=== PATIENT | female | born 1985 | race African-American/Black ===

== ENCOUNTER → 2017-02-28 | Emergency (ER) | payer MEDICAID, OTHER ==
[~2017-02-28] MED LIST: BUTA1CAP PO; FERR325T18 PO; LACTCAP8 PO; OXYC1TAB63 PO; PERI PO; PRENTAB7 PO
--- NOTE | 2017-02-28 17:32 | PD ---
HPI Chief Complaint Contractions Date Seen: Feb 28, 2017 Time Seen: 17:25 Travel History International Travel<30 Days: No Contact w/Intl Traveler<30Days: No Known Affected Area: No History of Present Illness HPI Patient is 31-year-old black female at 36-37 weeks the patient of Isi Roque presents complaining contractions, denies bleeding or ruptured membranes. heart rate tracing is reactive, and she is virginie irregularly at this time. Weeks Gestation: 36 Para: 0 : 1 History Social History Alcohol Use: No Tobacco Use: No Substance Abuse: No Review of Systems General / Constitutional: No: Fever, Weight Gain, Chills, Other Eyes: No: Diploplia, Blurred Vision, Visual changes, Pain, Photophobia HENT: No: Headaches, Vertigo, Lightheadedness Cardiovascular: No: Irregular Rhythm, Chest Pain or Discomfort, Palpitations, Tachycardia, Syncope, Varicosities, Edema, Cyanosis Respiratory: No: Cough, Short of Breath, Other Gastrointestinal: No: Nausea, Vomiting, Diarrhea Genitourinary: No: Decreased Urinary Output, Oliguria Musculoskeletal: No: Limited ROM, Weakness, Cramping, Edema, Pain Skin: No Rash, No Itching, No Dryness, No Lumps, No Change in Pigmentation, No Change in Nails, No Alopecia, No Lesions Neurologic: No: Weakness, Dizziness, Syncope, Focal Abnormalities, Coordination Problem, Headache, Slurred Speech, Seizures Psychiatric: No: Depression, Suicidal Ideations, Homicidal Ideation Endocrine: No: Heat Intolerance, Cold Intolerance, Polydipsia, Polyuria, Other Physical Exam Narrative GENERAL: Well-nourished, well-developed patient. SKIN: Warm and dry. HEAD: Normocephalic and atraumatic. EYES: No scleral icterus. No injection or drainage. ENT: No nasal drainage noted. Mucous membranes pink. Airway patent. NECK: Supple, trachea midline. No JVD. CARDIOVASCULAR: Regular rate and rhythm without murmurs, gallops, or rubs. RESPIRATORY: Breath sounds equal bilaterally. No accessory muscle use. BREASTS: Bilateral exam showed no masses , no retractions, no nipple discharge. ABDOMEN/GI: Abdomen soft, non-tender, bowel sounds present, no rebound, no guarding Gravid to [-36] weeks size Fundal Height: [-36] GENITOURINARY: External Genitalia: intact and normal in appearance BUS glands: [-] Cervix: [post-] Dilatation: [-3] Effacement: [30-] Station: [-3] Presentation: [vtx-] Membranes: [intact ] Uterine Contractions: [irreg-] FHT's: Category: [1-] Baseline: [-133] Reactive: [-yes] Variability: [mod-] Decels: [-0] EXTREMITIES: No cyanosis or edema. BACK: Nontender without obvious deformity. No CVA tenderness. NEUROLOGICAL: Awake and alert. Motor and sensory grossly within normal limits. Five out of 5 muscle strength in all muscle groups. Normal speech. MDM Interpretation(s) Patient a 31-year-old black female at 36 weeks the patient of Isi Doyle who presents complaining of contractions since 4 AM today. heart rate tracing is reactive and she is virginie irregularly. Cervix is 3 thick and very posterior head presenting. Plan Planning of the patient IM pain shot for some relief discharge home at this time to bedrest, Tylenol, increase fluids, heating pad or hot bath. That she is to return for increasing pain, bleeding or leakage of fluid. Diagnosis Diagnosis: Primary Impression: False labor before 37 completed weeks of gestation Disposition: DISCHARGE HOME Condition: Stable Andrea Paredes II, MD Feb 28, 2017 17:32
== END | disposition home or self-care (01) ==
LOC: HOBED 16:37
DX: O47.03 False labor before 37 completed weeks of gestation, third trimester (principal); Z3A.36 36 weeks gestation of pregnancy
CPT/HCPCS: 99284; J3010

== ENCOUNTER 2017-03-01 03:28 | Inpatient (IN) | payer MEDICAID ==
[~2017-03-01] VITALS: Ht 175.3 cm; Wt 103.0 kg
[2017-03-01] VITALS (7 sets, daily range): BP systolic 98–127; BP diastolic 55–74; PULSE 76–111; RESP 16–18; TEMP 97.6–98.8; O2SAT 100
[2017-03-01] MEDS ORDERED: LACTATED RINGER'S 1000 ML INJ 1,000 ML IV ONE ×2 (04:24→16:15)
--- NOTE | 2017-03-01 04:29 | HHI.HP ---
History & Physical H&P OB ED Note (Detail) Patient Name: Nelson Swain Unit Number: [id number] Date of : 1985 Patient Status: Registered Emergency Room Attending Doctor: Andrea Paredes II, MD HPI HPI Chief Complaint Contractions Date Seen: Feb 28, 2017 Time Seen: 17:25 Travel History International Travel<30 Days: No Contact w/Intl Traveler<30Days: No Known Affected Area: No History of Present Illness HPI Patient is 31-year-old black female at 37 weeks the patient of Isi Roque presents complaining contractions, denies bleeding or ruptured membranes. heart rate tracing is reactive, and she is virginie irregularly at this time. Patient was here proximally 10 hours ago was sent home because she was only 3 cm with no effacement and in minimal pain at that time. She presents at this time with an increase in her pain and contractions. Her cervical exam was so very hard to ascertain so an ultrasound was done patient is breech Weeks Gestation: 37 Para: 0 : 1 History (Limited) History Social History Alcohol Use: No Tobacco Use: No Substance Abuse: No Allergies-Medications Allergies-Medications ROS Review of Systems General / Constitutional: No: Fever, Weight Gain, Chills, Other Eyes: No: Diploplia, Blurred Vision, Visual changes, Pain, Photophobia HENT: No: Headaches, Vertigo, Lightheadedness Cardiovascular: No: Irregular Rhythm, Chest Pain or Discomfort, Palpitations, Tachycardia, Syncope, Varicosities, Edema, Cyanosis Respiratory: No: Cough, Short of Breath, Other Gastrointestinal: No: Nausea, Vomiting, Diarrhea Genitourinary: No: Decreased Urinary Output, Oliguria Musculoskeletal: No: Limited ROM, Weakness, Cramping, Edema, Pain Skin: No Rash, No Itching, No Dryness, No Lumps, No Change in Pigmentation, No Change in Nails, No Alopecia, No Lesions Neurologic: No: Weakness, Dizziness, Syncope, Focal Abnormalities, Coordination Problem, Headache, Slurred Speech, Seizures Psychiatric: No: Depression, Suicidal Ideations, Homicidal Ideation Endocrine: No: Heat Intolerance, Cold Intolerance, Polydipsia, Polyuria, Other Physical Exam Physical Exam Narrative GENERAL: Well-nourished, well-developed patient. SKIN: Warm and dry. HEAD: Normocephalic and atraumatic. EYES: No scleral icterus. No injection or drainage. ENT: No nasal drainage noted. Mucous membranes pink. Airway patent. NECK: Supple, trachea midline. No JVD. CARDIOVASCULAR: Regular rate and rhythm without murmurs, gallops, or rubs. RESPIRATORY: Breath sounds equal bilaterally. No accessory muscle use. BREASTS: Bilateral exam showed no masses , no retractions, no nipple discharge. ABDOMEN/GI: Abdomen soft, non-tender, bowel sounds present, no rebound, no guarding Gravid to [-36] weeks size Fundal Height: [-36] GENITOURINARY: External Genitalia: intact and normal in appearance BUS glands: [-] Cervix: [post-] Dilatation: [-3] Effacement: [30-] Station: [-3] Presentation: [vtx-] Membranes: [intact ] Uterine Contractions: [irreg-] FHT's: Category: [1-] Baseline: [-133] Reactive: [-yes] Variability: [mod-] Decels: [-0] EXTREMITIES: No cyanosis or edema. BACK: Nontender without obvious deformity. No CVA tenderness. NEUROLOGICAL: Awake and alert. Motor and sensory grossly within normal limits. Five out of 5 muscle strength in all muscle groups. Normal speech. Data Data [facility] Interpretation(s) Patient a 31-year-old black female at 37 weeks the patient of Isi Doyle who presents complaining of contractions since 4 AM today. heart rate tracing is reactive and she is virginie irregularly. Cervix is 3 thick and very posterior and the baby is breech by ultrasound Plan we will proceed with section for delivery due to malpresentation Diagnosis: Primary Impression: 37 week intrauterine breech presentation in early labor Disposition: DISCHARGE HOME Condition: Stable Andrea Paredes II, MD Feb [id number] [id number] Andrea Paredes II, MD Mar 01, 2017 04:29
[2017-03-01 04:50] LABS: AUTOMATED NEUTROPHIL # 8.8 TH/MM3 (1.8-7.7); BASOPHIL % 0.4 % (0.0-2.0); EOSINOPHIL # 0.1 TH/MM3 (0-0.4); EOSINOPHIL % 0.9 % (0.0-4.0); HEMATOCRIT 38.1 % (35.0-46.0); HEMO FLAGS DIFF FINAL; LYMPH % 17.8 % (9.0-44.0); LYMPHOCYTE # 2.1 TH/MM3 (1.0-4.8); MEAN CELL VOLUME 93.3 FL (80.0-100.0); MEAN CORPUSCULAR HGB CONC 34.3 % (32.0-36.0); MONO % 7.7 % (0.0-8.0); NEUT % 73.2 % (16.0-70.0); PLATELET COUNT 284 TH/MM3 (150-450); RED BLOOD COUNT 4.09 MIL/MM3 (4.00-5.30); RED CELL DISTRIBUTION WIDTH 13.9 % (11.6-17.2)
[2017-03-01 04:54] LABS: BACTERIA, URINE FEW /hpf; BLOOD, URINE NEG (NEG); COMMENT (UR) CULT NOT INDICATED; CULTURE IF INDICATED CULT NOT INDICATED; GLUCOSE,URINE NEG (NEG); KETONE, URINE NEG (NEG); NITRITE,URINE NEG (NEG); SQUAMOUS EPITHELIAL CELL URINE 1 /hpf (0-5); URINE COLOR LIGHT-YELLOW (YELLW/STRAW)
[2017-03-01] MEDS ORDERED: PRENTAB7 PO (05:11)
[2017-03-01] MEDS ORDERED: LACTCAP8 PO (05:11)
[2017-03-01] MEDS: LACTATED RINGER'S 1000 ML INJ 1,000 ML IV SCH (05:15)
[2017-03-01] MEDS ORDERED: ceFAZolin 2 GM PREMIX 50 ML IV SCH (05:30)
[2017-03-01] MEDS ORDERED: ACETAMINOPHEN 1000 MG/100 ML 100 ML IV ONE (05:55)
[2017-03-01] MEDS ORDERED: CITRIC ACID-SODIUM CITRATE LIQ 30 ML UDC PO SCH (06:00)
[2017-03-01] MEDS ORDERED: EPIDURAL-DIPHENHYDRAMINE HCL 50 MG CAP PO PRN (06:05)
[2017-03-01] MEDS ORDERED: EPIDURAL-DIPHENHYDRAMINE HCL 50 MG/ML VIAL IV PUSH PRN (06:05)
[2017-03-01] MEDS ORDERED: EPIDURAL-NO SYSTEMIC NARCOTICS PRN (06:05)
[2017-03-01] MEDS ORDERED: EPIDURAL-NALOXONE HCL 0.4 MG/ML AMP IV PUSH PRN (06:05)
[2017-03-01] MEDS ORDERED: EPIDURAL-DO NOT ADMINISTER ANTICOAGULANTS PRN (06:05)
[2017-03-01] MEDS ORDERED: oxyCODONE/ACETAMINOPHEN 5 MG/325 MG TAB PO PRN (07:15)
[2017-03-01] MEDS ORDERED: OXYTOCIN 30 UNITS-500ML PREMIX 500 ML IV ONE (07:15)
[2017-03-01] MEDS ORDERED: ONDANSETRON HCL 4 MG/2 ML VIAL IV PUSH PRN (07:15)
[2017-03-01] MEDS ORDERED: SIMETHICONE 80 MG CHEWABLE TAB PO PRN (07:15)
[2017-03-01] MEDS ORDERED: SODIUM CHLORIDE 0.9% FLUSH 10 ML FLUSH IV FLUSH PRN (07:15)
[2017-03-01] MEDS ORDERED: ZOLPIDEM TARTRATE 5 MG TAB PO PRN (07:15)
[2017-03-01] MEDS ORDERED: KETOROLAC TROMETHAMINE 60 MG/2 ML (IM) VIAL IM PRN (07:15)
[2017-03-01] MEDS ORDERED: ACETAMINOPHEN 325 MG TAB PO PRN (07:15)
[2017-03-01] MEDS ORDERED: KETOROLAC TROMETHAMINE 60 MG/2 ML (IM) VIAL IM ONE (07:54)
[2017-03-01] MEDS ORDERED: OXYTOCIN 30 UNITS-500ML PREMIX 500 ML ONE (07:55)
[2017-03-01] MEDS ORDERED: SODIUM CHLORIDE 0.9% FLUSH 10 ML FLUSH IV FLUSH SCH (09:00)
--- NOTE | 2017-03-01 09:02 | MP ---
cc: KIMBERLY PAREDES MD DATE OF SURGERY 03/01/2017 PREOPERATIVE DIAGNOSIS 37-week intrauterine breech presentation early labor. POSTOPERATIVE DIAGNOSIS 37-week intrauterine breech presentation early labor. PROCEDURE Primary low transverse section SURGEON Kimberly Paredes MD ANESTHESIA Spinal PREOPERATIVE NOTE The patient is a 31-year-old black G1, P0 at 37 weeks. She goes to [facility] for care. She presented in early labor and noted to be breech presentation with ultrasound. The patient needed section delivery. PROCEDURE The patient was taken to the operating room, placed in the supine position on the operating table. Adequate spinal anesthesia was administered. She was prepped and draped for abdominal surgery and a Pfannenstiel incision was made in the lower abdomen. The fascia was dissected laterally off the rectus muscle and the peritoneal cavity entered sharply. The incision was extended superiorly and inferiorly and a bladder blade placed in the lower incision. The visceral peritoneum was reflected off the lower uterine segment and placed on the bladder blade. A transverse hysterotomy was made and extended bilaterally and a male infant was delivered from zaid breech presentation at 06:29 a.m., weight 3480 grams, 8 and 9. There were no complications with the delivery. Cord blood obtained, placenta manually extracted. The uterus exteriorized and cleaned of all remnants of membranes. Hysterotomy closed in a running layer of chromic followed by imbricating suture of same. Hemostasis was achieved. The bladder reapproximated with a running 2-0 Vicryl. The uterus elevated and blood suctioned from the cul-de-sac and gutters. The uterus was replaced in the peritoneal cavity. The ovaries and tubes were within normal limits. The parietal peritoneum closed in a running layer of 2-0 Vicryl. The muscle reapproximated with stick ties of chromic. The fascia closed in a running layer of 0-Vicryl. The subcutaneous tissues reapproximated with 3-0 plain running catgut suture and skin closed with 3-0 Monocryl subcuticular stitch. Pressure dressing applied. Estimated blood loss 500 cc with no complications. Sponge and needle counts correct times two. The patient was sent to the Recovery Room in stable condition. MD ALBER Hill/EVARISTO /7:21 AM /8:41 AM
[2017-03-01] MEDS ORDERED: LACTATED RINGER'S 1000 ML INJ 1,000 ML IV SCH (12:00)
[2017-03-01] MEDS ORDERED: OXYTOCIN 30 UNITS-500ML PREMIX 500 ML IV PRN (17:15)
[2017-03-01] MEDS: DOCUSATE SODIUM 50 MG/SENNA 8.6 MG TAB PO PRN (21:14)
[2017-03-01] MEDS: IBUPROFEN 600 MG TAB PO PRN (21:15)
[2017-03-02] VITALS (8 sets, daily range): BP systolic 121–123; BP diastolic 71–74; PULSE 18–122; RESP 18; TEMP 98.6–99.3; O2SAT 100
[2017-03-02 05:59] LABS: AUTOMATED NEUTROPHIL # 19.4 TH/MM3 (1.8-7.7); BASOPHIL % 0.2 % (0.0-2.0); EOSINOPHIL # 0.2 TH/MM3 (0-0.4); EOSINOPHIL % 0.7 % (0.0-4.0); HEMATOCRIT 27.1 % (35.0-46.0); HEMO FLAGS DIFF FINAL; LYMPHOCYTE # 2.3 TH/MM3 (1.0-4.8); MEAN CELL VOLUME 94.6 FL (80.0-100.0); MEAN CORPUSCULAR HEMOGLOBIN 31.3 PG (27.0-34.0); MEAN CORPUSCULAR HGB CONC 33.1 % (32.0-36.0); MONO % 5.9 % (0.0-8.0); NEUT % 83.2 % (16.0-70.0); PLATELET COUNT 248 TH/MM3 (150-450); RED BLOOD COUNT 2.87 MIL/MM3 (4.00-5.30); WHITE BLOOD COUNT 23.3 TH/MM3 (4.0-11.0)
[2017-03-02] MEDS: IBUPROFEN 600 MG TAB PO PRN ×2 (07:41→17:25)
[2017-03-02] MEDS ORDERED: medroxyPROGESTERone ACETATE SUSP 150 MG/ML SYRINGE IM ONE (09:15)
--- NOTE | 2017-03-02 09:38 | HHI.OB ---
Subjective Post Operative Day: 1 Remarks Patient is a 31-year-old delivered at 37 weeks and 0 days. Patient is day 1 after for breech presentation. Patient's pain is well -controlled. Patient reports eating and drinking without any nausea or vomiting. Patient reports minimal bleeding. Patient has passed gas but no bowel movements. Patient is walking without lower extremity pain or shortness of breath. Patient reports desire for contraception and breast- and formula- feeding. Objective Vitals/I&O Vital Signs Date Time Temp Pulse Resp B/P (MAP) Pulse Ox O2 Delivery O2 Flow Rate FiO2 03/01/17 12:00 98.8 85 16 118/64 (82) Result Diagram: 03/02/17 0533 Objective Remarks GENERAL: Well-nourished, well-developed patient. CARDIOVASCULAR: Regular rate and rhythm without murmurs, gallops, or rubs. RESPIRATORY: Breath sounds equal bilaterally. No accessory muscle use. ABDOMEN/GI: Abdomen soft, non-tender, bowel sounds present. Incision: Clean, dry and intact. Fundus: Firm, non-tender at umbilicus. GENITOURINARY: Light to moderate bleeding. EXTREMITIES: No cyanosis or edema, non-tender, without signs of DVT. Medications and IVs Current Medications Medications (Trade) Dose Ordered Sig/Richard Route Start Time Stop Time Status Last Admin Lactated Ringer's 1,000 ml @ 150 mls/hr Q6H40M IV 03/01/17 04:54 03/01/17 05:15 Cefazolin Sodium/ Dextrose 50 ml @ 100 mls/hr APARTMENT MAINTENANCE WORKER IV 03/01/17 05:30 03/05/17 05:29 03/01/17 05:48 (Bicitra Liq) 30 ml APARTMENT MAINTENANCE WORKER PO 03/01/17 06:00 03/05/17 05:59 03/01/17 05:48 Oxytocin 500 ml @ 100 mls/hr UNSCH X1 PRN IV 03/01/17 17:15 03/02/17 17:14 (NS Flush) 2 ml BID IV FLUSH 03/01/17 09:00 03/01/17 21:15 (NS Flush) 2 ml UNSCH PRN IV FLUSH 03/01/17 07:15 (Mylicon Chew) 80 mg QID PRN PO 03/01/17 07:15 (Tylenol) 650 mg Q6H PRN PO 03/01/17 07:15 (Motrin) 600 mg Q6H PRN PO 03/01/17 07:15 03/02/17 07:41 (Percocet 5-325 Mg) 1 tab Q4H PRN PO 03/01/17 07:15 (Percocet 5-325 Mg) 2 tab Q4H PRN PO 03/01/17 07:15 (Vivian-Colace) 2 tab Q12H PRN PO 03/01/17 07:15 03/01/17 21:14 (Ambien) 5 mg HS PRN PO 03/01/17 07:15 (M-M-R Ii Inj) 0.5 ml ONCE ONCE SQ 03/02/17 16:00 03/02/17 16:01 (Boostrix Inj) 0.5 ml ONCE ONCE IM 03/02/17 16:00 03/02/17 16:01 03/02/17 07:42 (Zofran Inj) 4 mg Q6H PRN IV PUSH 03/01/17 07:15 (Flu (Quadrivalent) Vaccine Inj) 0.5 ml ONCE ONCE IM 03/02/17 10:00 03/02/17 10:01 Assessment/Plan Problem List: (1) 37 weeks gestation of ICD Codes: Z3A.37 - 37 weeks gestation of (2) S/P ICD Codes: Z98.891 - History of uterine scar from previous surgery Assessment and Plan Patient is a 31-year-old delivered at 37 weeks and 0 days. Patient is day 1 after for breech presentation. Patient was counseled to do 6 weeks of pelvic rest. Patient was counseled to follow up in 1 and 6 weeks. Patient requested follow-up and contraception. --AF VSS --Continue routine care --Motrin and Percocet when necessary for pain --Encourage OOB --Pelvic rest for 6 weeks will need follow-up appointment at that time. Incision check in one week. --Contraception: Depo-Provera --Anticipate discharge tomorrow or the next day s/d/w Dr. Oleary and Dr. Hadley Discharge Planning --Anticipate discharge tomorrow or the next day Aidan Garcia MD R2 Mar 02, 2017 09:38
[2017-03-02] MEDS ORDERED: INFLUENZA VIRUS VACCINE (QUADRIVALENT) 0.5 ML SYR IM ONE (10:00)
[2017-03-02] MEDS: LACTATED RINGER'S 1000 ML INJ 1,000 ML IV SCH (14:14)
[2017-03-02] MEDS ORDERED: MEASLES, MUMPS, RUBELLA VACCINE 0.5 ML VIAL SQ ONE (16:00)
[2017-03-02] MEDS ORDERED: DIPHTH/TETANUS/ACEL PERTUSSIS (BOOSTER) 0.5 ML VIAL/PFS IM ONE (16:00)
[2017-03-02] MEDS ORDERED: LACTATED RINGER'S 1000 ML INJ 500 ML IV SCH (23:30)
[2017-03-03] MEDS: IBUPROFEN 600 MG TAB PO PRN ×3 (02:58→16:31)
[2017-03-03] MEDS: oxyCODONE/ACETAMINOPHEN 5 MG/325 MG TAB PO PRN ×3 (03:01→16:31)
[2017-03-03 03:03] VITALS: BP 129/84; PULSE 109; RESP 18
[2017-03-03 08:00] VITALS: BP 122/74; PULSE 95; RESP 18; TEMP 98.2
--- NOTE | 2017-03-03 08:17 | HHI.OB ---
Subjective Post Operative Day: 2 Remarks Patient seen and examined this morning. Afebrile overnight. Patient tachycardic ranging 100s-120s past 24 hours. BP within normal limits. Patient is postoperative day #2. Pain is well-controlled. Incision not draining. Decreased lochia. Denies dysuria or hematuria. No breast tenderness. She is feeding the baby via breast and formula. Appetite good. No nausea or vomiting. Endorses flatus. Ambulating well without any issues of balance. She specifically denies any dizziness, lightheadedness, or chest pain. Denies calf pain, shortness of breath, cough. Objective Vitals/I&O Vital Signs Date Time Temp Pulse Resp B/P (MAP) Pulse Ox O2 Delivery O2 Flow Rate FiO2 03/03/17 03:03 18 03/03/17 03:03 109 129/84 (99) 03/02/17 22:55 105 03/02/17 20:30 120 03/02/17 20:30 18 123/71 (88) 03/02/17 20:30 98.6 18 03/02/17 18:35 18 03/02/17 18:35 99.3 122 121/74 (90) 100 03/02/17 17:27 114 03/02/17 15:32 120 03/02/17 13:23 102 03/02/17 12:57 106 03/02/17 11:46 122 Result Diagram: 03/02/17 0533 Objective Remarks GENERAL: Well-nourished, well-developed patient. CARDIOVASCULAR: Regular rate and rhythm without murmurs, gallops, or rubs. RESPIRATORY: Breath sounds equal bilaterally. No accessory muscle use. ABDOMEN/GI: Abdomen soft, non-tender, bowel sounds present. Incision: Clean, dry and intact. Fundus: Firm, non-tender at umbilicus. GENITOURINARY: Light to moderate bleeding. EXTREMITIES: No cyanosis or edema, non-tender, without signs of DVT. Medications and IVs Current Medications Medications (Trade) Dose Ordered Sig/Richard Route Start Time Stop Time Status Last Admin Lactated Ringer's 1,000 ml @ 150 mls/hr Q6H40M IV 03/01/17 04:54 03/01/17 05:15 Cefazolin Sodium/ Dextrose 50 ml @ 100 mls/hr LICENSED PRACTICAL NURSE CLINIC NURSE IV 03/01/17 05:30 03/05/17 05:29 03/01/17 05:48 (Bicitra Liq) 30 ml LICENSED PRACTICAL NURSE CLINIC NURSE PO 03/01/17 06:00 03/05/17 05:59 03/01/17 05:48 (NS Flush) 2 ml BID IV FLUSH 03/01/17 09:00 03/01/17 21:15 (NS Flush) 2 ml UNSCH PRN IV FLUSH 03/01/17 07:15 (Mylicon Chew) 80 mg QID PRN PO 03/01/17 07:15 (Tylenol) 650 mg Q6H PRN PO 03/01/17 07:15 (Motrin) 600 mg Q6H PRN PO 03/01/17 07:15 03/03/17 02:58 (Percocet 5-325 Mg) 1 tab Q4H PRN PO 03/01/17 07:15 03/02/17 18:47 (Percocet 5-325 Mg) 2 tab Q4H PRN PO 03/01/17 07:15 03/03/17 03:01 (Vivian-Colace) 2 tab Q12H PRN PO 03/01/17 07:15 03/01/17 21:14 (Ambien) 5 mg HS PRN PO 03/01/17 07:15 (Zofran Inj) 4 mg Q6H PRN IV PUSH 03/01/17 07:15 Assessment/Plan Problem List: (1) S/P ICD Codes: Z98.891 - History of uterine scar from previous surgery Assessment and Plan Patient is a 31-year-old now delivered at 37 weeks and 0 days. Patient is day 2 after for breech presentation. Patient was counseled to do 6 weeks of pelvic rest. Patient was counseled to follow up in 1 week for incision check and 6 weeks . Patient requested follow-up and contraception. --AF --Continue routine postoperative care --Motrin and Percocet when necessary for pain --Encourage OOB --Pelvic rest for 6 weeks will need follow-up appointment at that time. Incision check in one week. Patient following with Isi Roque --Contraception: desiring Depo-Provera, will give prior to hospital discharge --Anticipate discharge tomorrow s/d/w Dr. Oleary Discharge Planning --Anticipate discharge tomorrow or the next day Brady Reddy MD R2 Mar 03, 2017 08:17
[2017-03-03] MEDS ORDERED: INFLUENZA VIRUS VACCINE (QUADRIVALENT) 0.5 ML SYR IM ONE (13:45)
[2017-03-03] MEDS ORDERED: medroxyPROGESTERone ACETATE SUSP 150 MG/ML SYRINGE IM ONE (13:45)
[2017-03-03 20:00] VITALS: BP 120/69; PULSE 102; RESP 18; TEMP 98.2
[2017-03-04] MEDS: IBUPROFEN 600 MG TAB PO PRN ×2 (02:27→10:09)
[2017-03-04] MEDS: oxyCODONE/ACETAMINOPHEN 5 MG/325 MG TAB PO PRN ×2 (02:27→10:10)
[2017-03-04] MEDS ORDERED: OXYC1TAB63 PO (07:43)
[2017-03-04] MEDS ORDERED: PERI PO (07:43)
--- NOTE | 2017-03-04 07:46 | HHI.DCPOC ---
Discharge Care Plan Diagnosis: (1) 37 weeks gestation of (2) S/P Report Symptoms to Your Doctor -Temperature above 100.5 degrees -Redness, of incision or excessive or foul smelling drainage -Unusual pain or calf pain -Increased vaginal bleeding -Painful or difficulty urinating -Feelings of extreme sadness or anxiety after 2 weeks Goals to Promote Your Health * To prevent worsening of your condition and complications, follow up with an OB /REPRODUCTIVE SURGEON physician within one week for an incision check. Directions to Meet Your Goals Take your medications as prescribed Follow your dietary instruction Follow activity as directed Ensure plenty of rest for recovery Drink fluids for hydration Keep your appointments as scheduled Take your immunizations and boosters as scheduled If your symptoms worsen call your PCP, if no PCP go to Urgent Care Center or Emergency Room Smoking is Dangerous to Your Health. Avoid second hand smoke Call the 24-hour crisis hotline for domestic abuse at Brady Reddy MD R2 Mar 04, 2017 07:46
[2017-03-04] MEDS ORDERED: FERR325T18 PO (07:48)
--- NOTE | 2017-03-04 08:04 | HHI.OB ---
Subjective Post Operative Day: 3 Remarks Patient seen and examined this morning. Afebrile overnight. Patient tachycardic ranging 90s-110s past 24 hours. BP within normal limits. Patient is postoperative day #3. Pain is well-controlled. Incision is clean and not draining. Decreased lochia. Denies dysuria. No breast tenderness. She is feeding baby via breast and formula. Appetite is good without nausea or vomiting. Endorses flatus. Ambulating well without any issues with balance. She specifically denies any fevers, dizziness, lightheadedness, or chest pain. Denies calf pain, shortness of breath, cough. Objective Vitals/I&O Vital Signs Date Time Temp Pulse Resp B/P (MAP) Pulse Ox O2 Delivery O2 Flow Rate FiO2 03/03/17 20:00 120/69 (86) 03/03/17 20:00 98.2 102 18 Result Diagram: 03/02/17 0533 Objective Remarks GENERAL: Well-nourished, well-developed patient. CARDIOVASCULAR: Regular rate and rhythm without murmurs, gallops, or rubs. RESPIRATORY: Breath sounds equal bilaterally. No accessory muscle use. ABDOMEN/GI: Abdomen soft, non-tender, bowel sounds present. Incision: Clean, dry and intact. Fundus: Firm, non-tender at umbilicus. GENITOURINARY: Light to moderate bleeding. EXTREMITIES: No cyanosis or edema, non-tender, without signs of DVT. Medications and IVs Current Medications Medications (Trade) Dose Ordered Sig/Richard Route Start Time Stop Time Status Last Admin Lactated Ringer's 1,000 ml @ 150 mls/hr Q6H40M IV 03/01/17 04:54 03/01/17 05:15 Cefazolin Sodium/ Dextrose 50 ml @ 100 mls/hr SHEETER HELPER IV 03/01/17 05:30 03/05/17 05:29 03/01/17 05:48 (Bicitra Liq) 30 ml SHEETER HELPER PO 03/01/17 06:00 03/05/17 05:59 03/01/17 05:48 (NS Flush) 2 ml BID IV FLUSH 03/01/17 09:00 03/01/17 21:15 (NS Flush) 2 ml UNSCH PRN IV FLUSH 03/01/17 07:15 (Mylicon Chew) 80 mg QID PRN PO 03/01/17 07:15 (Tylenol) 650 mg Q6H PRN PO 03/01/17 07:15 (Motrin) 600 mg Q6H PRN PO 03/01/17 07:15 03/04/17 02:27 (Percocet 5-325 Mg) 1 tab Q4H PRN PO 03/01/17 07:15 03/02/17 18:47 (Percocet 5-325 Mg) 2 tab Q4H PRN PO 03/01/17 07:15 03/04/17 02:27 (Vivian-Colace) 2 tab Q12H PRN PO 03/01/17 07:15 03/01/17 21:14 (Ambien) 5 mg HS PRN PO 03/01/17 07:15 (Zofran Inj) 4 mg Q6H PRN IV PUSH 03/01/17 07:15 Assessment/Plan Problem List: (1) S/P ICD Codes: Z98.891 - History of uterine scar from previous surgery Assessment and Plan Patient is a 31-year-old now delivered at 37 weeks and 0 days. Patient is day 2 after for breech presentation. Patient was counseled to do 6 weeks of pelvic rest. Patient was counseled to follow up in 1 week for incision check and 6 weeks . Patient requested follow-up and contraception. --AF --Continue routine postoperative care --Motrin and Percocet when necessary for pain --Encourage OOB --Pelvic rest for 6 weeks will need follow-up appointment at that time. Incision check in one week. Patient following with Isi Roque --Contraception: desiring Depo-Provera, has been given last night --Stable for discharge today dw Dr. Paredes Discharge Planning --Anticipate discharge tomorrow or the next day Brady Reddy MD R2 Mar 04, 2017 08:04
[2017-03-04] MEDS: DOCUSATE SODIUM 50 MG/SENNA 8.6 MG TAB PO PRN (10:09)
== END 2017-03-04 14:01 | disposition home or self-care (01) | DRG 766 ==
LOC: HOBED 03:40 → H2EB 04:25 → H1EA 08:39
PROVIDERS: ADMIT Obstetrics & Gynecology Maternal & Fetal Medicine; ATTEND Obstetrics & Gynecology Maternal & Fetal Medicine
PROC: 10D00Z1 Extraction of Products of Conception, Low, Open Approach (ICD-10-PCS; principal; 2017-03-01)
DX: O32.1XX0 Maternal care for breech presentation, not applicable or unspecified (principal); Z37.0 Single live birth; Z3A.37 37 weeks gestation of pregnancy
CPT/HCPCS: 59025; 76815; 80307; 81001; 84112; 85025; 86850; 86900; 86901; 90686; 90715; J0131; J0690; J1050; J1200; J1885; J2590; J7120; Q2038

== ENCOUNTER 2017-03-05 13:38 | Emergency (ER) | payer MEDICAID ==
[~2017-03-05] VITALS: Ht 175.3 cm; Wt 100.0 kg
[~2017-03-05 13:38] MED LIST changes: -BUTA1CAP PO
[2017-03-05 13:40] VITALS: BP 140/87; PULSE 107; RESP 16; TEMP 98.7; O2SAT 100
[2017-03-05 13:53] VITALS: BP 154/71; PULSE 101; RESP 16; O2SAT 100
--- NOTE | 2017-03-05 14:08 | PD ---
HPI Chief Complaint: Edema Time Seen by Provider: 13:51 Travel History International Travel<30 days: No Contact w/Intl Traveler<30days: No Traveled to known affect area: No History of Present Illness HPI 31-year-old female complains of lower extremity swelling. Patient status post C -section day #4. Patient was discharged from the hospital yesterday. Patient noticed increasing swelling lower extremity today. Patient denies any headache. Patient denies any visual change. Patient denies any chest pain or shortness of breath. Patient denies abdominal pain. Patient denies any history of preeclampsia or hypertension during . PFSH Past Medical History Tetanus Vaccination: Unknown Influenza Vaccination: Yes ?: Not LMP: c- section 03/01/17 Past Surgical History Section: Yes Social History Alcohol Use: No Tobacco Use: No Substance Use: No Allergies-Medications (Allergen,Severity, Reaction): Coded Allergies: No Known Allergies (Unverified , 02/28/17) Reported Meds & Prescriptions Reported Meds & Active Scripts Active Ferrous Sulfate 325 Mg (65 Mg Iron) Tablet 325 Mg PO BIDPC Gnp Senna Plus 8.6-50 mg (Sennosides-Docusate Sodium) 8.6 Mg-50 Mg Tab 2 Tab PO Q12H PRN Oxycodone-Acetaminophen 5-325 (Oxycodone HCl/Acetaminophen) 5 Mg-325 Mg Tablet 1 Tab PO Q4H PRN Reported Probiotic (Lactobacillus Acidophilus) 10 Billion Cell Cap 1 Cap PO TIDAC Vitamins Tablet (Pnv No.95/Ferrous Fum/Folic AC) 28 Mg Iron-800 Mcg Tablet 1 Tab PO DAILY Review of Systems General / Constitutional: No: Fever Eyes: No: Visual changes HENT: No: Headaches Cardiovascular: No: Chest Pain or Discomfort Respiratory: No: Shortness of Breath Gastrointestinal: No: Abdominal Pain Genitourinary: No: Dysuria Musculoskeletal: No: Pain Skin: No Rash Neurologic: No: Weakness Psychiatric: No: Depression Endocrine: No: Polydipsia Hematologic/Lymphatic: No: Easy Bruising Physical Exam Narrative GENERAL: Well-nourished, well-developed patient. SKIN: Focused skin assessment warm/dry. HEAD: Normocephalic. EYES: No scleral icterus. No injection or drainage. NECK: Supple, trachea midline. No JVD or lymphadenopathy. CARDIOVASCULAR: Regular rate and rhythm without murmurs, gallops, or rubs. RESPIRATORY: Breath sounds equal bilaterally. No accessory muscle use. GASTROINTESTINAL: Abdomen soft, non-tender, nondistended. scar healing well. No discharge. MUSCULOSKELETAL: +1 to +2 pitting edema lower extremity. No calf tenderness. Negative Homans sign. BACK: Nontender without obvious deformity. No CVA tenderness. Neurologic exam normal. Data Data Last Documented VS Vital Signs Date Time Temp Pulse Resp B/P (MAP) Pulse Ox O2 Delivery O2 Flow Rate FiO2 03/05/17 13:53 101 16 154/71 (98) 100 Room Air 03/05/17 13:40 98.7 MDM Medical Decision Making Medical Screen Exam Complete: Yes Emergency Medical Condition: Yes Differential Diagnosis Differential diagnosis including dependent edema, DVT, preeclampsia. Narrative Course 31-year-old female with lower extremity edema status post day #4. No evidence of preeclampsia. No evidence of DVT. Most likely dependent edema. Diagnosis Primary Impression: Dependent edema Additional Impression: Status post Patient Instructions: General Instructions Additional Instructions: Keep legs elevated. Follow-up with personal physician. Return if worse. Med/Other Pt SpecificInfo: No Change to Meds Disposition: 01 DISCHARGE HOME Condition: Stable Shaun Noble MD Mar 05, 2017 14:08
== END 2017-03-05 14:36 | disposition home or self-care (01) ==
LOC: NEPE 13:38
DX: O90.89 Other complications of the puerperium, not elsewhere classified (principal); R60.0 Localized edema; Z79.899 Other long term (current) drug therapy
CPT/HCPCS: 99281

== ENCOUNTER 2017-03-07 19:01 | Emergency (ER) | payer MEDICAID ==
[2017-03-07] MEDS ORDERED: BUTA1CAP PO (20:40)
--- NOTE | 2017-03-07 20:41 | PD ---
HPI Chief Complaint Lower Extremity swelling headache 1 week after for breech at term Date Seen: Mar 07, 2017 Time Seen: 20:20 Travel History International Travel<30 Days: No Contact w/Intl Traveler<30Days: No Known Affected Area: No History of Present Illness HPI 31-year-old black female who is 1 week out from a section for breech presentation in early labor, she's done well in the her postop course was discharged in the usual fashion. At home she's noticed increased swelling in her legs from the knee down on both sides no pain in the extremities no color change, no shortness of breath or chest pain, she has had headache and low -grade tachycardia since delivery. Para: 2 : 2 History Obstetric History Obstetric History 1 week after for breech Past Surgical History Narrative Surgical Social History Alcohol Use: No Tobacco Use: No Substance Abuse: No Allergies-Medications (Allergen,Severity, Reaction): Coded Allergies: No Known Allergies (Unverified , 03/05/17) Home Meds Active Scripts Ferrous Sulfate (Ferrous Sulfate) 325 Mg (65 Mg Iron) Tablet, 325 MG PO BIDPC for Nutritional Supplement, #60 TAB 0 Refills Prov:Brady Reddy MD R2 03/04/17 Sennosides-Docusate Sodium (Gnp Senna Plus 8.6-50 mg) 8.6 Mg-50 Mg Tab, 2 TAB PO Q12H Y for CONSTIPATION, #60 TAB Prov:Brady Reddy MD R2 03/04/17 Oxycodone HCl/Acetaminophen (Oxycodone-Acetaminophen 5-325) 5 Mg-325 Mg Tablet, 1 TAB PO Q4H Y for PAIN SCALE 6 TO 10, #21 Prov:Brady Reddy MD R2 03/04/17 Reported Medications Lactobacillus Acidophilus (Probiotic) 10 Billion Cell Cap, 1 CAP PO TIDAC for Nutritional Supplement, #90 CAP 0 Refills 03/01/17 Pnv No.95/Ferrous Fum/Folic AC ( Vitamins Tablet) 28 Mg Iron-800 Mcg Tablet, 1 TAB PO DAILY 03/01/17 Review of Systems General / Constitutional: No: Fever, Weight Gain, Chills, Other Eyes: No: Diploplia, Blurred Vision, Visual changes, Pain, Photophobia HENT: No: Headaches, Vertigo, Lightheadedness Cardiovascular: No: Irregular Rhythm, Chest Pain or Discomfort, Palpitations, Tachycardia, Syncope, Varicosities, Edema, Cyanosis Respiratory: No: Cough, Short of Breath, Other Gastrointestinal: No: Nausea, Vomiting, Diarrhea Genitourinary: No: Decreased Urinary Output, Oliguria Musculoskeletal: Edema, No: Limited ROM, Weakness, Cramping, Pain Skin: No Rash, No Itching, No Dryness, No Lumps, No Change in Pigmentation, No Change in Nails, No Alopecia, No Lesions Neurologic: No: Weakness, Dizziness, Syncope, Focal Abnormalities, Coordination Problem, Headache, Slurred Speech, Seizures Psychiatric: No: Depression, Suicidal Ideations, Homicidal Ideation Endocrine: No: Heat Intolerance, Cold Intolerance, Polydipsia, Polyuria, Other Physical Exam Narrative GENERAL: Well-nourished, well-developed patient. SKIN: Warm and dry. HEAD: Normocephalic and atraumatic. EYES: No scleral icterus. No injection or drainage. ENT: No nasal drainage noted. Mucous membranes pink. Airway patent. NECK: Supple, trachea midline. No JVD. CARDIOVASCULAR: Regular rate] slight tachycardia and rhythm without murmurs, gallops, or rubs. RESPIRATORY: Breath sounds equal bilaterally. No accessory muscle use. BREASTS: Bilateral exam showed no masses , no retractions, no nipple discharge. ABDOMEN incision well healed normal bowel sounds EXTREMITIES: No cyanosis both legs from the knee down her are quite swollen height with skin but no tenderness with palpation a negative Homans sign bilaterally. BACK: Nontender without obvious deformity. No CVA tenderness. NEUROLOGICAL: Awake and alert. Motor and sensory grossly within normal limits. Five out of 5 muscle strength in all muscle groups. Normal speech. Data Data Orders Orders Us Leg Venous Doppler Bilat (03/07/17 ) Labs Doppler ultrasound of both legs is negative for blood clots MDM Interpretation(s) Patient is 31-year-old black female who is 1 week status post section for breech presentation. She's had a relatively unremarkable postoperative course until noted the last couple of days the swelling in lower extremities. On exam she does have a fairly tightly swollen legs below the knee on both sides negative Homans sign. Doppler studies of the legs tonight and were negative for blood clots Plan Plan to discharge the patient home to elevate her legs with the compresses on the legs if needed Tylenol for general pains Fioricet for headache Diagnosis Diagnosis: Primary Impression: Leg swelling Disposition: 01 DISCHARGE HOME Condition: Stable Scripts Hxwrxxwmvt-Iqzcglsuemptm-Zpvxqegh (Fioricet) 50-300-40 Mg Cap 1-2 CAP PO Q6H Y for HEADACHE for 7 Days, #20 CAP 0 Refills Prov: Andrea Paredes II, MD 03/07/17 Andrea Paredes II, MD Mar 07, 2017 20:41
--- NOTE | 2017-03-07 21:20 | RADRPT ---
EXAM DATE/TIME: 03/07/2017 20:08 [facility] COMPARISON: No previous studies available for comparison. INDICATIONS : Bilateral leg swelling. MEDICAL HISTORY : . SURGICAL HISTORY : section. ENCOUNTER: Initial ACUITY: 1 day PAIN SCORE: 2/10 LOCATION: Bilateral legs. TECHNIQUE: Venous ultrasound of the left and right leg was performed from the inguinal ligament to the proximal calf. Real-time, color Doppler and spectral tracing, compression and augmentation techniques were us ed. FINDINGS: RIGHT LEG: There is normal compressibility of the deep venous system from the inguinal region to the proximal ca lf. No echogenic clot is seen in the lumen of the common femoral, femoral, popliteal, and posterior tibial veins. There is a normal response of the venous system to proximal and distal augmentation an d respiration. LEFT LEG: There is normal compressibility of the deep venous system from the inguinal region to the proximal ca lf. No echogenic clot is seen in the lumen of the common femoral, femoral, popliteal, and posterior tibial veins. There is a normal response of the venous system to proximal and distal augmentation an d respiration. CONCLUSION: Negative exam. No sonographic or Doppler findings of deep venous thrombosis. Julian Melendrez MD on March 07, 2017 at 21:18 Board Certified Radiologist. This report was verified electronically.
== END 2017-03-07 21:16 | disposition home or self-care (01) ==
LOC: HOBED 19:01
DX: O12.05 Gestational edema, complicating the puerperium (principal); R51 Headache; R00.0 Tachycardia, unspecified; Z79.899 Other long term (current) drug therapy
CPT/HCPCS: 93970; 99284